=== PATIENT | male | born 1950 | race Caucasian/White ===

== ENCOUNTER 2019-12-20 09:09 | Outpatient (REF) | payer MEDICARE, OTHER, SELFPAY ==
[2019-12-20 21:28] LABS: ALT 47 U/L (16-63); AST 23 U/L (15-37); Albumin 3.6 g/dL (3.4-5.0); Alkaline Phosphatase 80 U/L (46-116); Anion Gap 5.8 mmol/L (3-11); BUN 13 mg/dL (7-18); Bilirubin, Total 0.7 mg/dL (0.2-1.0); CO2 32.2 mmol/L (21.0-32.0); CREATININE 0.79 mg/dL (0.70-1.30); Calculated LDL 155 mg/dL (<100); Chloride 107 mmol/L (98-107); Cholesterol 213 mg/dL (<200); Glucose 98 mg/dL (74-106); HDL Cholesterol 40 mg/dL (40-60); Potassium 4.5 mmol/L (3.5-5.1); Sodium 145 mmol/L (136-145); Total Protein 6.6 g/dL (6.4-8.2); Triglyceride 91 mg/dL (<150)
[2019-12-21 18:39] LABS: PSA, Screening 3.4 ng/mL (0.0-6.5)
== END 2019-12-20 09:29 ==
LOC: NCHCN 09:09
PROVIDERS: PCP Internal Medicine; Visit Provider Internal Medicine
DX: E66.9 Obesity, unspecified (principal); Z12.5 Encounter for screening for malignant neoplasm of prostate
CPT/HCPCS: 80053; 80061; 84153

== ENCOUNTER 2020-11-29 11:04 | Outpatient (REF) | payer MEDICARE, SELFPAY ==
[2020-11-29 13:57] LABS: Anion Gap 6.4 mmol/L (3-11); BUN 19 mg/dL (7-18); CO2 29.6 mmol/L (21.0-32.0); CREATININE 0.8 mg/dL (0.70-1.30); Calcium 8.8 mg/dL (8.5-10.1); Calculated LDL 109 mg/dL (<100); Chloride 107 mmol/L (98-107); Cholesterol 157 mg/dL (<200); Glucose 100 mg/dL (74-106); HDL Cholesterol 39 mg/dL (40-60); Potassium 4.5 mmol/L (3.5-5.1); Sodium 143 mmol/L (136-145); Triglyceride 48 mg/dL (<150)
== END 2020-11-29 11:05 | disposition home or self-care (01) ==
LOC: NCHCN 11:04
PROVIDERS: PCP Internal Medicine; Visit Provider Internal Medicine
DX: E78.5 Hyperlipidemia, unspecified (principal)
CPT/HCPCS: 80048; 80061

== ENCOUNTER 2022-02-18 22:15 | Outpatient (REF) | payer MEDICARE, SELFPAY ==
[2022-02-19 01:06] LABS: ALT 37 U/L (16-63); AST 25 U/L (15-37); Albumin 3.6 g/dL (3.4-5.0); Alkaline Phosphatase 81 U/L (46-116); Anion Gap 7.8 mmol/L (3-11); BUN 18 mg/dL (7-18); Bilirubin, Total 0.4 mg/dL (0.2-1.0); CO2 28.2 mmol/L (21.0-32.0); CREATININE 0.8 mg/dL (0.70-1.30); Calcium 9.2 mg/dL (8.5-10.1); Calculated LDL 112 mg/dL (<100); Chloride 107 mmol/L (98-107); Cholesterol 175 mg/dL (<200); Estimated GFR 94.03 (mL/min/1.73m2); Glucose 113 mg/dL (74-106); HDL Cholesterol 43 mg/dL (40-60); Potassium 3.9 mmol/L (3.5-5.1); Sodium 143 mmol/L (136-145); Total Protein 6.9 g/dL (6.4-8.2); Triglyceride 100 mg/dL (<150)
== END 2022-02-18 22:16 | disposition home or self-care (01) ==
LOC: NCHCN 22:15
PROVIDERS: PCP Internal Medicine; Visit Provider Internal Medicine
DX: E78.5 Hyperlipidemia, unspecified (principal); E66.9 Obesity, unspecified
CPT/HCPCS: 80053; 80061

== ENCOUNTER 2023-02-28 16:13 | Outpatient (REF) | payer MEDICARE, SELFPAY ==
[2023-02-28 15:20] LABS: Anion Gap 6.8 mmol/L (3-11); BUN 14 mg/dL (7-18); CO2 29.2 mmol/L (21.0-32.0); CREATININE 0.9 mg/dL (0.70-1.30); Calcium 9.5 mg/dL (8.5-10.1); Calculated LDL 91 mg/dL (<100); Chloride 105 mmol/L (98-107); Cholesterol 153 mg/dL (<200); Estimated GFR 90.18 (mL/min/1.73m2); Glucose 106 mg/dL (74-106); HDL Cholesterol 49 mg/dL (40-60); Potassium 4.3 mmol/L (3.5-5.1); Sodium 141 mmol/L (136-145); Triglyceride 66 mg/dL (<150)
== END 2023-02-28 16:14 | disposition home or self-care (01) ==
LOC: NCHCN 16:13
PROVIDERS: PCP Internal Medicine; Visit Provider Internal Medicine
DX: E78.5 Hyperlipidemia, unspecified (principal); R73.09 Other abnormal glucose
CPT/HCPCS: 80048; 80061

== ENCOUNTER 2024-03-03 10:09 | Outpatient (REF) | payer MEDICARE, SELFPAY ==
[2024-03-03 14:57] LABS: BUN 16 mg/dL (7-18); CREATININE 0.9 mg/dL (0.70-1.30); Calculated LDL 80 mg/dL (<100); Chloride 109 mmol/L (98-107); Cholesterol 140 mg/dL (<200); Estimated GFR 89.62 (mL/min/1.73m2); Glucose 106 mg/dL (74-106); HDL Cholesterol 47 mg/dL (40-60); Potassium 4.4 mmol/L (3.5-5.1); Sodium 144 mmol/L (136-145); Triglyceride 65 mg/dL (<150)
[2024-03-03 15:06] LABS: Hemoglobin A1C 5.5 % (<5.7)
== END 2024-03-03 10:10 | disposition home or self-care (01) ==
LOC: NCHCN 10:09
PROVIDERS: PCP Internal Medicine; Visit Provider Internal Medicine
DX: R73.03 Prediabetes (principal); E78.5 Hyperlipidemia, unspecified; E66.9 Obesity, unspecified
CPT/HCPCS: 80048; 80061; 83036

== ENCOUNTER 2024-07-02 12:59 | Outpatient (REF) | payer MEDICARE, SELFPAY | END 2024-07-02 13:00 | disposition home or self-care (01) | LOC: NCHCN 12:59 | PROVIDERS: PCP Internal Medicine; Visit Provider Internal Medicine | DX: Z12.5 Encounter for screening for malignant neoplasm of prostate (principal) | CPT/HCPCS: 84153 ==

== ENCOUNTER 2024-10-12 16:27 | Outpatient (REF) | payer MEDICARE, SELFPAY ==
--- NOTE | 2024-10-12 14:45 | SKI_PTH ---
PATIENT: Brandt Suresh LOC: [facility]#:[id number] AGE/SX: 74/M ROOM: RE10/12/[address]: RAFAEL Elaine : 1950 BED: DIS: 10/12/2024 SPEC #: [id number] RECD: 10/13/24 12:47 STATUS: DIANE RERodrigo #: [id number] BRENDA: 10/12/24 14:[address]: Bobby Cross DEPT: Surgical Specimen RECD BY: Jeannine Ling ENTERED: 10/13/24 12:48 SP TYPE: LITA MILLER DR: Levon Cleaning Tissues: 1 - SKIN BIOPSY(SHAVE/PUNCH) Procedures: SKIN LEVEL 4 Comments: [id number]
== END 2024-10-12 16:28 | disposition home or self-care (01) ==
LOC: NCHCN 16:27
PROVIDERS: PCP Internal Medicine; Visit Provider Physician Assistant
DX: L82.1 Other seborrheic keratosis (principal)
CPT/HCPCS: 88305

== ENCOUNTER 2024-12-22 11:58 | Outpatient (REF) | payer MEDICARE, SELFPAY ==
[2024-12-22 14:46] LABS: Anion Gap 2.1 mmol/L (3-11); BUN 18 mg/dL (7-18); CO2 34.9 mmol/L (21.0-32.0); Calcium 9.1 mg/dL (8.5-10.1); Chloride 104 mmol/L (98-107); Estimated GFR 96.09 (mL/min/1.73m2); Glucose 98 mg/dL (74-106); Potassium 4.5 mmol/L (3.5-5.1); Sodium 141 mmol/L (136-145)
== END 2024-12-22 11:59 | disposition home or self-care (01) ==
LOC: NCHCN 11:58
PROVIDERS: PCP Internal Medicine; Visit Provider Internal Medicine
DX: Z91.89 Other specified personal risk factors, not elsewhere classified (principal)
CPT/HCPCS: 80048

== ENCOUNTER 2025-03-07 15:41 | Outpatient (REF) | payer MEDICARE, SELFPAY ==
[2025-03-07 16:10] LABS: HCT 48.2 % (40.0-50.0); HGB 15.0 g/dL (13.5-17.5); MCH 27.5 pg (27.0-33.0); MCHC 31.1 % (32.0-36.0); MCV 88 fL (80-95); MPV 10.4 fL (8.0-11.0); Platelet Count 311 10^3/uL (130-400); RBC 5.46 10^6/uL (4.36-5.78); RDW 13.8 % (11.8-14.1); RDW-SD 44.2 fL; WBC 6.17 10^3/uL (4.4-10.8)
[2025-03-07 16:24] LABS: ALT 21 U/L (10-49); AST 24 U/L (<34); Albumin 4.3 g/dL (3.4-5.0); Alkaline Phosphatase 83 U/L (46-116); Anion Gap 5.9 mmol/L (3-11); BUN 12 mg/dL (9-23); Bilirubin, Total 0.60 mg/dL (0.2-1.2); CO2 30.1 mmol/L (20.0-31.0); Calcium 9.3 mg/dL (8.3-10.6); Chloride 107 mmol/L (98-107); Cholesterol 133 mg/dL (<200); Glucose 119 mg/dL (74-106); HDL Cholesterol 48 mg/dL (>40); Potassium 4.1 mmol/L (3.5-5.1); Sodium 143 mmol/L (136-145); Total Protein 7.0 g/dL (5.7-8.2)
[2025-03-09 14:22] LABS: PSA, Screening 4.5 ng/mL (<=6.5)
== END 2025-03-07 15:42 | disposition home or self-care (01) ==
LOC: NCHCN 15:41
PROVIDERS: PCP Internal Medicine; Visit Provider Internal Medicine
DX: E78.5 Hyperlipidemia, unspecified (principal)
CPT/HCPCS: 80053; 80061; 84153; 85027